=== PATIENT | female | born 1965 | race Two or more races ===

== ENCOUNTER 2024-06-16 14:48 | Emergency (ER) | payer MEDICAID, OTHER ==
[~2024-06-16] VITALS: Ht 160 cm; Wt 65.0 kg
[2024-06-16 14:52] VITALS: O2SAT 99
[2024-06-16] MEDS: ACETAMINOPHEN 325MG TABLET PO ONE (15:58)
[2024-06-16] MEDS: FAMOTIDINE 20MG/2ML VIAL IV ONE (16:14)
[2024-06-16] MEDS: DIPHENHYDRAMINE 50MG/ML VIAL IV ONE (16:14)
[2024-06-16] MEDS: DEXAMETHASONE 4MG/ML 1ML VIAL IV ONE (16:14)
[2024-06-16] MEDS: LACTATED RINGERS 1,000 ML IV SCH (16:16)
[2024-06-16 16:38] LABS: BASOPHILS % 0.2 % (0.0-2.0); EOSINOPHILS % 0.2 % (0.0-5.0); HEMATOCRIT. 39.1 % (36.0-48.0); HEMOGLOBIN. 12.9 g/dL (12.0-16.0); LYMPHOCYTES % 11.9 % (20.0-50.0); MEAN CORPUSCULAR HEMOGLOBIN 29.2 pg (28.0-32.0); MEAN CORPUSCULAR VOLUME 88.6 fL (81.0-99.0); MEAN PLATELET VOLUME 8.1 fl (7.4-10.4); MONOCYTES % 7.6 % (2.0-8.0); NEUTROPHILS % 80.1 % (40.0-76.0); PLATELET 186 x1000/uL (130-400); RED BLOOD CELL COUNT 4.42 mill/uL (4.2-5.4); RED CELL DISTRIBUTION WIDTH 12.7 % (11.6-14.6); WHITE BLOOD COUNT 10.5 x1000/uL (4.5-11.0)
[2024-06-16 16:41] LABS: CHLORIDE 108 mEq/L (98-107); POTASSIUM 3.7 mEq/L (3.5-5.1); SODIUM 140 mEq/L (136-145)
[2024-06-16 16:42] LABS: CARBON DIOXIDE 26 mEq/L (21-32)
[2024-06-16 16:43] LABS: CALCIUM 9.4 mg/dL (8.7-10.4)
[2024-06-16 16:47] LABS: GLUCOSE 102 mg/dL (70-105); UREA NITROGEN BLOOD 16 mg/dL (9-23)
[2024-06-16 16:49] LABS: ALANINE AMINOTRANSFERASE 10 IU/L (10-49); ALBUMIN 4.5 g/dL (3.2-4.8); ASPARTATE AMINOTRANSFERASE 23 IU/L (<34)
[2024-06-16 16:50] LABS: BILIRUBIN TOTAL 0.4 mg/dL (0.1-1.0); PROTEIN TOTAL 6.5 g/dL (6.0-8.3)
[2024-06-16 16:52] LABS: TROPONIN I HIGH SENSITIVITY < 4 ng/L (3.0-34)
[2024-06-16 19:07] VITALS: BP 147/58; PULSE 52; RESP 14; TEMP 98.3
== END 2024-06-16 19:17 | disposition home or self-care (01) ==
LOC: ER 14:48 → EDBD 14:48 → ER 19:17
DX: R21 Rash and other nonspecific skin eruption (principal); R51.9 Headache, unspecified; R07.89 Other chest pain; I10 Essential (primary) hypertension; Z98.890 Other specified postprocedural states
CPT/HCPCS: 80053; 85025; 84484; 36415; 71045; 70450; 93005; 96361; 96374; 96375; 99285; J1100; J1200; J3490; Z7610